=== PATIENT | male | born 1975 | race African-American/Black ===

== ENCOUNTER 2019-11-25 10:11 | Emergency (ER) | payer SELFPAY ==
[~2019-11-25] VITALS: Ht 182.9 cm; Wt 95.0 kg
[2019-11-25] MEDS ORDERED: METO100T16 PO (10:44)
[2019-11-25 10:45] VITALS: BP 155/117
[2019-11-25] MEDS ORDERED: NIFE-33 PO (10:45)
[2019-11-25] MEDS ORDERED: KETOROLAC 60MG/2ML VIAL IM STA (11:33)
== END 2019-11-25 12:14 | disposition home or self-care (01) ==
LOC: ER 10:11
DX: G57.91 Unspecified mononeuropathy of right lower limb (principal); I10 Essential (primary) hypertension
CPT/HCPCS: 96372; 99283; J1885